=== PATIENT | female | born 1995 | race Caucasian/White ===

== ENCOUNTER → 2021-09-08 | Outpatient (CLI) | payer OTHER ==
[~2021-09-08] MED LIST: FEOSOL325 MG PO; ZOFRAN4 MG PO
== END ==
LOC: EMI 14:49
DX: R20.0 Anesthesia of skin (principal); G37.9 Demyelinating disease of central nervous system, unspecified; Z87.39 Personal history of other diseases of the musculoskeletal system and connective tissue; R20.2 Paresthesia of skin; H53.9 Unspecified visual disturbance; R90.89 Other abnormal findings on diagnostic imaging of central nervous system
CPT/HCPCS: 70553; A9577

== ENCOUNTER 2021-09-17 14:13 | Emergency (ER) | payer OTHER ==
[~2021-09-17 14:13] MED LIST changes: -ZOFRAN 4 MG TAB4 MG PO
[2021-09-17 14:46] LABS: HEMOGLOBIN 11.5 gm/dl (12.3-15.3); RED BLOOD COUNT 3.76 M/UL (4.00-5.10); WHITE BLOOD COUNT 13.1 K/UL (4.5-11.0)
[2021-09-17 15:03] LABS: BUN/CREATININE RATIO 26 (0-10)
[2021-09-17] MEDS ORDERED: ZOFRAN 4 MG TAB4 MG PO (16:41)
== END 2021-09-17 17:00 | disposition home or self-care (01) ==
LOC: ER1 14:13
PROVIDERS: Preventive Medicine Occupational Medicine
DX: R55 Syncope and collapse (principal)
CPT/HCPCS: 80048; 85025; 93005; 96360; 99284

== ENCOUNTER → 2021-09-17 | Outpatient (CLI) | payer OTHER ==
[~2021-09-17] MED LIST changes: +ZOFRAN 4 MG TAB4 MG PO
[2021-09-17 13:02] LABS: WBC (AUTOMATED 7 10^3 (0-5)
[2021-09-17 13:07] LABS: WBC (AUTOMATED 8 10^3 (0-5)
[2021-09-17 13:36] LABS: GLUCOSE,CSF 50 mg/dL (50-80); TOTAL PROTEIN,CSF 33 mg/dL (20-45)
[2021-09-21 14:10] LABS: IMMUNOGLOBULIN G, QN, SERUM 955 mg/dL (586-1602)
== END ==
LOC: RAD 09:54
PROVIDERS: Psychiatry & Neurology Neurology
DX: G35 Multiple sclerosis (principal)
CPT/HCPCS: 36415; 82040; 82784; 82945; 83873; 83916; 84157; 87070; 87205; 87210; 89051

== ENCOUNTER → 2021-10-15 | Outpatient (CLI) | payer OTHER ==
[~2021-10-15] MED LIST changes: +ZOFRAN 4 MG TAB4 MG PO
== END ==
LOC: MRI 12:04
DX: G35 Multiple sclerosis (principal); R29.818 Other symptoms and signs involving the nervous system; R20.2 Paresthesia of skin; Z87.39 Personal history of other diseases of the musculoskeletal system and connective tissue
CPT/HCPCS: 72156; 72157; A9577